=== PATIENT | female | born 1965 | race Caucasian/White ===

== ENCOUNTER → 2018-02-08 | Outpatient (REF) | payer OTHER | LOC: ZZSENDIN 12:00 | PROVIDERS: ATTEND Orthopaedic Surgery Hand Surgery | DX: M67.441 Ganglion, right hand (principal) | CPT/HCPCS: 88304 ==

== ENCOUNTER 2018-04-29 12:13 | Emergency (ER) | payer BC ==
[2018-04-29] MEDS ORDERED: AZIT-18 (12:20)
--- NOTE | 2018-04-29 12:21 | ER Report ---
History and Physical Time Seen By MD: 12:15 HPI/ROS CHIEF COMPLAINT: cough, concern for possible pneumonia HISTORY OF PRESENT ILLNESS: This is a 53 year old female. She has been having cough for several days, now with some left sided and left lateral chest pain. Subjective fevers. Started on Azithromycin by urgent care. [place] this was viral, possible influenza. No other workup. [place] like pain was worsening today, worried about worsening pneumonia. REVIEW OF SYSTEMS: Constitutional: As above. Cardiovascular: Lateral left chest wall pain, worse with coughing. Respiratory: As above. Gastrointestinal: No abdominal pain. No nausea or vomiting. Genitourinary: No dysuria. Musculoskeletal: Has diffuse body aches. Skin: No rashes. Neurological: No numbness. No weakness. Allergies: Coded Allergies: No Known Drug Allergies (Unverified , 04/29/18) Home Meds Active Scripts Benzonatate 100 Mg Cap (TESSALON PERLE 100 MG CAP) 100 Mg Capsule, 100 MG PO TID PRN for COUGH, #15 CAP 0 Refills Prov:OBINNA DIMAS MD 04/29/18 Reported Medications Azithromycin 250 Mg Tab (AZITHROMYCIN 250 MG TAB) 250 Mg Tablet 04/29/18 Reviewed Nurses Notes: Yes Constitutional Vital Sign - Last 24 Hours 04/29/18 04/29/18 04/29/18 04/29/18 12:15 12:20 12:21 12:30 Temp 98.5 Pulse ??? 65 Resp 16 B/P (MAP) 134/60 (84) 134/60 124/71 (88) Pulse Ox 93 O2 Delivery Room Air 04/29/18 04/29/18 04/29/18 04/29/18 13:00 13:15 13:45 13:50 Pulse 69 63 66 B/P (MAP) 116/74 (88) Pulse Ox 91 90 04/29/18 04/29/18 04/29/18 14:05 14:19 14:20 Pulse 58 64 B/P (MAP) 130/82 (98) Pulse Ox 91 95 Physical Exam General Appearance: The patient is alert. No acute distress. Eyes: Pupils are equal, round. No pallor, injection or icterus. ENT: Mucous membranes are moist. Normal oral mucosa. Posterior oropharynx is normal. Neck: Supple and non tender. Respiratory: Lungs with diffuse rhonchi, no rales or wheezing. There are no retractions or accessory muscle use. Cardiovascular: Regular rate and rhythm. No murmurs, gallops or rubs. Normal capillary refill. Gastrointestinal: Abdomen is soft and non tender. Nondistended. Normal active bowel sounds. Neurological: Alert and oriented x3. No focal neurologic deficits Skin: Warm and dry. Musculoskeletal: Extremities are nontender. DIFFERENTIAL DIAGNOSIS: After history and physical exam, differential diagnosis was considered for ongoing cough and rest her problems now with worsening left-sided pain which appears sharp and is likely pleuritic we'll need to look further to look for influenza, other viral syndrome, or pneumonia Medical Decision Making Data Points Result Diagram: 04/29/18 1225 04/29/18 1225 Laboratory Hematology Test 04/29/18 12:25 04/29/18 12:35 Red Blood Count 4.91 M/uL (4.17-5.56) Mean Corpuscular Volume 91.2 fL (80.0-96.0) Mean Corpuscular Hemoglobin 29.8 pg (26.0-33.0) Mean Corpuscular Hemoglobin Concent 32.7 g/dL (32.0-36.0) Red Cell Distribution Width 13.4 % (11.5-14.5) Mean Platelet Volume 9.1 fL (7.2-11.1) Neutrophils (%) (Auto) 63.7 % (39.4-72.5) Lymphocytes (%) (Auto) 25.4 % (17.6-49.6) Monocytes (%) (Auto) 8.4 % (4.1-12.4) Eosinophils (%) (Auto) 1.9 % (0.4-6.7) Basophils (%) (Auto) 0.6 % (0.3-1.4) Nucleated RBC Relative Count (auto) 0.0 /100WBC Neutrophils # (Auto) 3.1 K/uL (2.0-7.4) Lymphocytes # (Auto) 1.2 K/uL (1.3-3.6) Monocytes # (Auto) 0.4 K/uL (0.3-1.0) Eosinophils # (Auto) 0.1 K/uL (0.0-0.5) Basophils # (Auto) 0.0 K/uL (0.0-0.1) Nucleated RBC Absolute Count (auto) 0.00 K/uL D-Dimer Quantitative (PE/DVT) 0.35 ug/ml (0-0.50) Sodium Level 143 mmol/L (137-145) Potassium Level 3.8 mmol/L (3.5-5.0) Chloride Level 106 mmol/L (98-107) Carbon Dioxide Level 29 mmol/L (22-31) Blood Urea Nitrogen 15 mg/dl (7-18) Creatinine 0.80 mg/dl (0.52-1.04) Glomerular Filtration Rate Calc > 60.0 Random Glucose 56 mg/dl (75-110) Lactate 1.3 mmol/L (0.7-2.1) Calcium Level 9.4 mg/dl (8.4-10.2) Total Bilirubin 0.4 mg/dl (0.2-1.3) Aspartate Amino Transf (AST/SGOT) 30 U/L (0-35) Alanine Aminotransferase (ALT/SGPT) 40 U/L (0-56) Alkaline Phosphatase 77 U/L (0-126) Total Protein 6.8 g/dl (6.3-8.2) Albumin 4.0 g/dl (3.5-5.0) Influenza Virus Type A (PCR) Negative (NEGATIVE) Influenza Virus Type B (PCR) Negative (NEGATIVE) Chemistry Test 04/29/18 12:25 04/29/18 12:35 White Blood Count 4.9 k/uL (4.5-11.0) Red Blood Count 4.91 M/uL (4.17-5.56) Hemoglobin 14.6 g/dL (12.0-16.0) Hematocrit 44.8 % (34.0-47.0) Mean Corpuscular Volume 91.2 fL (80.0-96.0) Mean Corpuscular Hemoglobin 29.8 pg (26.0-33.0) Mean Corpuscular Hemoglobin Concent 32.7 g/dL (32.0-36.0) Red Cell Distribution Width 13.4 % (11.5-14.5) Platelet Count 203 K/uL (150-450) Mean Platelet Volume 9.1 fL (7.2-11.1) Neutrophils (%) (Auto) 63.7 % (39.4-72.5) Lymphocytes (%) (Auto) 25.4 % (17.6-49.6) Monocytes (%) (Auto) 8.4 % (4.1-12.4) Eosinophils (%) (Auto) 1.9 % (0.4-6.7) Basophils (%) (Auto) 0.6 % (0.3-1.4) Nucleated RBC Relative Count (auto) 0.0 /100WBC Neutrophils # (Auto) 3.1 K/uL (2.0-7.4) Lymphocytes # (Auto) 1.2 K/uL (1.3-3.6) Monocytes # (Auto) 0.4 K/uL (0.3-1.0) Eosinophils # (Auto) 0.1 K/uL (0.0-0.5) Basophils # (Auto) 0.0 K/uL (0.0-0.1) Nucleated RBC Absolute Count (auto) 0.00 K/uL D-Dimer Quantitative (PE/DVT) 0.35 ug/ml (0-0.50) Glomerular Filtration Rate Calc > 60.0 Lactate 1.3 mmol/L (0.7-2.1) Calcium Level 9.4 mg/dl (8.4-10.2) Total Bilirubin 0.4 mg/dl (0.2-1.3) Aspartate Amino Transf (AST/SGOT) 30 U/L (0-35) Alanine Aminotransferase (ALT/SGPT) 40 U/L (0-56) Alkaline Phosphatase 77 U/L (0-126) Total Protein 6.8 g/dl (6.3-8.2) Albumin 4.0 g/dl (3.5-5.0) Influenza Virus Type A (PCR) Negative (NEGATIVE) Influenza Virus Type B (PCR) Negative (NEGATIVE) Coagulation Test 04/29/18 12:25 D-Dimer Quantitative (PE/DVT) 0.35 ug/ml EKG/Imaging EKG Interpretation 12 lead EKG: Rhythm: normal sinus rhythm [place]: normal QRS: normal ST segments: normal Imaging EXAMINATION: Chest radiographs 2 views HISTORY: Cough, chest pain. COMPARISON: 07/01/2012. FINDINGS: PA and lateral views of the chest are submitted. Lines/tubes: None. Lungs/pleura: No focal consolidation or pleural effusion. Heart: Negative. Mediastinum: Negative. Bony structures/body wall: Negative. IMPRESSION: No radiographic evidence of acute cardiopulmonary disease. Report Dictated By: Tahmina Vang MD at 04/29/2018 12:53 PM ED Course/Re-evaluation Clinical Indication for ER IV: IV Access ED Course Labs unremarkable. Imaging shows no acute cardiopulmonary process. Influenza negative. Pain appears likely due to inflammation or pleuritic pain and discussed this with the patient. Recommended continuing with a azithromycin. Did provide some Tessalon Perles to help with cough. Decision to Disposition Date: Apr 29, 2018 Decision to Disposition Time: 14:13 Depart Departure Latest Vital Signs Vital Signs Date Time Temp Pulse Resp B/P (MAP) Pulse Ox O2 Delivery O2 Flow Rate FiO2 04/29/18 14:20 64 95 04/29/18 14:19 130/82 (98) 04/29/18 12:21 98.5 16 Room Air Impression: Primary Impression: Viral upper respiratory infection Additional Impression: Pleuritic chest pain Condition: Improved Disposition: HOME OR SELF-CARE New Scripts Benzonatate 100 Mg Cap (TESSALON PERLE 100 MG CAP) 100 Mg Capsule 100 MG PO TID PRN for COUGH, #15 CAP 0 Refills Prov: OBINNA DIMAS MD 04/29/18 Patient Instructions: Pleurisy (ED), Upper Respiratory Infection (ED) Additional Instructions: Keep taking your Azithromycin. Start Ibuprofen 200mg over the counter tablets, take 3 tablets every 6 hours as needed for pain. Start Tessalon Perles, one every 8 hours as needed for cough. Problem Qualifiers OBINNA DIMAS MD Apr 29, 2018 12:21
[2018-04-29] MEDS ORDERED: NS(*) 0.9% 1000 ML BAG 1,000 ML IV ONE (12:30)
[2018-04-29 12:42] LABS: PLATELET COUNT, AUTOMATED 203 K/uL (150-450)
--- NOTE | 2018-04-29 13:00 | RADIOLOGY IMAGING REPORT ---
FACILITY: [facility] - [place] PATIENT NAME: Christine Mulligan : 1965 MR: [id number] V: [id number] EXAM DATE: ORDERING PHYSICIAN: OBINNA DIMAS TECHNOLOGIST: Location: [facility] Patient: Christine Mulligan : 1965 Visit/Account:[id number] Date of Sevice: 04/29/2018 EXAMINATION: Chest radiographs 2 views HISTORY: Cough, chest pain. COMPARISON: 07/01/2012. FINDINGS: PA and lateral views of the chest are submitted. Lines/tubes: None. Lungs/pleura: No focal consolidation or pleural effusion. Heart: Negative. Mediastinum: Negative. Bony structures/body wall: Negative. IMPRESSION: No radiographic evidence of acute cardiopulmonary disease. Report Dictated By: Tahmina Vang MD at 04/29/2018 12:53 PM Report E-Signed By: Tahmina Vang MD at 04/29/2018 12:55 PM WSN:[id number]
--- NOTE | 2018-04-29 13:32 | EKG ---
FACILITY: [facility] PATIENT NAME: LAWRENCE JOHN : [id number] MR: [id number] V: [id number] EXAM DATE: ORDERING PHYSICIAN: OBINNA DIMAS TECHNOLOGIST: SHANTELLE Arnold Reason : RESPIRATORY Blood Pressure : / mmHG Vent. Rate : 061 BPM Atrial Rate : 061 BPM P-R Int : 166 ms QRS Dur : 084 ms QT Int : 400 ms P-R-T Axes : 071 055 060 degrees QTc Int : 402 ms Normal sinus rhythm Poor R wave progression in anterior leads Abnormal ECG No previous ECGs available Confirmed by CORIE ANGEL ([id number]) on 04/29/2018 5:20:50 PM Referred By: Confirmed By:CORIE ANGEL
[2018-04-29] MEDS ORDERED: BENZ100C4 PO (14:16)
[2018-04-29 14:19] VITALS: BP 130/82
== END 2018-04-29 14:29 | disposition home or self-care (01) ==
LOC: ER 12:29
DX: J06.9 Acute upper respiratory infection, unspecified (principal); R09.1 Pleurisy
CPT/HCPCS: 71046; 83605; 85025; 85379; 87040; 87502; 93005; 96360; 99284; J7030; 82040; 82247; 82310; 82374; 82435; 82565; 82947; 84075; 84132; 84155; 84295; 84450; 84460; 84520